=== PATIENT | female | born 1980 | race Two or more races ===

== ENCOUNTER 2022-01-11 11:30 | Emergency (ER) | payer MEDICAID ==
[~2022-01-11] VITALS: Ht 154.9 cm; Wt 95.0 kg
[2022-01-11 11:55] VITALS: BP 136/77
[2022-01-11] MEDS ORDERED: IBUPROFEN 800 MG TAB PO ONE (12:30)
[2022-01-11] MEDS ORDERED: IBUP800T27 PO (12:38)
== END 2022-01-11 13:00 | disposition home or self-care (01) ==
LOC: ER 11:30
DX: S93.401A Sprain of unspecified ligament of right ankle, initial encounter (principal); E11.9 Type 2 diabetes mellitus without complications; X50.1XXA Overexertion from prolonged static or awkward postures, initial encounter; Y93.89 Activity, other specified; Y92.89 Other specified places as the place of occurrence of the external cause; Y99.8 Other external cause status
CPT/HCPCS: 73610

== ENCOUNTER 2024-09-07 09:21 | Day surgery (SDC) | payer OTHER ==
[~2024-09-07] VITALS: Ht 154.9 cm; Wt 99.8 kg
[~2024-09-07 09:21] MED LIST: ALBUAER3 IN; BUSP15TA60 PO; CETI-120 PO; FAMO20TA10 GT; IBUP-1456 PO; MORI500C PO; NITR-87 PO; SEMA4INJ SC; SUMA100T15 PO
[2024-09-07] MEDS ORDERED: DexAMETHasone SOD PHOS 10MG/1ML VIAL INJ ONE (11:00)
[2024-09-07] MEDS ORDERED: LIDOCAINE 2% (LOCAL ANESTH.) PF 5ml SDV ONE (11:00)
[2024-09-07] MEDS ORDERED: ONDANSETRON HCL 4 MG/2 ML VIAL ONE (11:00)
[2024-09-07] MEDS ORDERED: fentaNYL CITRATE 100 MCG/2 ML VL ONE (11:01)
[2024-09-07] MEDS ORDERED: KETAMINE 50mg/ML 1ml syringe ONE (11:01)
[2024-09-07] MEDS ORDERED: GLYCOPYRROLATE 0.2 MG/ML 1ML VIAL ONE (11:01)
[2024-09-07] MEDS ORDERED: PROPOFOL 10 MG/ML 20 ML IV ONE (11:01)
[2024-09-07] MEDS ORDERED: LIDOCAINE HCL 2% TOP JELLY 5ML TOP ONE (11:04)
[2024-09-07] MEDS: LIDOCAINE W/ EPINEPHRINE 2% INJ 20ML VIAL ONE (11:11)
[2024-09-07] MEDS: ROPIVACAINE 0.5% (5MG/ML) 20ML AMPULE IJ ONE (11:11)
[2024-09-07] MEDS: DexAMETHasone SOD PHOS 4 MG/1ML SDV INJ ONE (11:11)
[2024-09-07] MEDS ORDERED: KETOROLAC TROMETH 30 MG/ML 1ML VIAL ONE (11:15)
[2024-09-07] MEDS: ceFAZolin 2 GM/D5W50ml 50 ML IV ONE (12:17)
[2024-09-07] MEDS: GABAPENTIN 300 MG CAP ONE (12:34)
[2024-09-07] MEDS: CELECOXIB 100 MG CAP ONE (12:34)
[2024-09-07] MEDS: ACETAMINOPHEN IV 100 ML IV ONE (12:34)
[2024-09-07] MEDS: ACETAMINOPHEN IV 1000 MG/100ML (10MG/ML) IV ONE (12:35)
[2024-09-07] MEDS: CELECOXIB 100 MG CAP PO ONE (12:36)
[2024-09-07] MEDS: GABAPENTIN 300 MG CAP PO ONE (12:36)
[2024-09-07 13:46] VITALS: PULSE 93; RESP 21; TEMP 97.3; O2SAT 98
[2024-09-07] MEDS ORDERED: ePHEDrine SULFATE 50 MG/ML AMP IV PRN (14:00)
[2024-09-07] MEDS ORDERED: fentaNYL CITRATE 100 MCG/2 ML VL IV PRN (14:00)
[2024-09-07] MEDS ORDERED: FLUMAZENIL 0.1 MG/ML INJ 10ML MDV IV PRN (14:00)
[2024-09-07] MEDS ORDERED: hydrALAZINE HCL 20 MG/ML VL IV PRN (14:00)
[2024-09-07] MEDS ORDERED: ONDANSETRON HCL 4 MG/2 ML VIAL IV PRN (14:00)
[2024-09-07] MEDS ORDERED: NALOXONE HCL 0.4 MG/ML VIAL IV PRN (14:00)
--- NOTE | 2024-09-07 14:00 | DVHOP2 ---
Operative Report - 2 Report Details Date: 09/07/24 Preop Diagnosis: Right knee lateral meniscus tear Postop Diagnosis: Right knee lateral meniscus tear Surgeon: Lupe Ron MD Cloth Weaver: Marcella JENNINGS Anesthesiologist: Shad Reynaga CRNA Anesthesia: General, Local Consent: The patient was informed of the risks and benefits of the procedure. These include but are not limited to complications of anesthesia, postoperative infection, incomplete relief of symptoms, recurrence of symptoms, damage to blood vessels, nerves and tendons, deep venous thrombosis, pulmonary embolism and possible need for repeat surgery in the future. 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 It had been interpreted as a bucket-handle on MRI however it was I discoid that had complex tears. There was scattered grade 2-3 lesions of the cartilage of the lateral compartment. Indications for Surgery: Right knee lateral meniscus tear with severe pain not responding to nonoperative management. Name of Procedure Performed Right knee arthroscopy, partial lateral meniscectomy Procedure Details Procedure Details: Patient was brought to the operating room placed on table supine position. General anesthetic was given. Local anesthetic infiltrated by anesthesia. 2 g IV Ancef were given. Examination under anesthesia performed. Operative lower extremity was prepped and draped in sterile fashion. Surgical timeout was performed verifying patient, laterality, and procedure. Extremity was elevated, exsanguinated with Esmarch and tourniquet inflated to 250 mmHg. I then made inferior lateral portal in usual fashion and entered the joint with blunt cannula and trocar. I began my inspection of the supra suprapatellar recess patellofemoral compartment medial gutter and the medial compartment. I placed inferior medial portal utilizing a spinal needle for guidance. I inspected and probed the structures in the medial compartment which were intact. I then shaved some fat pad to improve visualization in the notch then inspected and probed ligaments which were intact. 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 I debrided this to a stable margin using biters and Carlos. At the end there was not much if any functional lateral meniscus remaining. I inspected the lateral gutter and brought my attention back to the patellofemoral compartment. I irrigated and suctioned several times to remove particular debris. I then suctioned the joint as dry as possible. Portal sites were closed with Steri-Strips. The wounds were dressed sterilely. Tourniquet released. Patient tolerated the procedure well and was brought to the recovery room in stable condition. Condition Stable Disposition Home LUPE RON MD Sep 07, 2024 14:00
[2024-09-07] MEDS: oxyCODONE HCL 5MG TAB PO PRN (14:16)
[2024-09-07] MEDS: HYDROmorphone HCL 2 MG/ML VL/or syr IV PRN (14:19)
[2024-09-07 15:21] VITALS: BP 137/95; PULSE 81; RESP 13; O2SAT 96
== END 2024-09-07 15:40 | disposition home or self-care (01) ==
LOC: SUR 09:21
PROVIDERS: ATTEND Orthopaedic Surgery
DX: S83.271A Complex tear of lateral meniscus, current injury, right knee, initial encounter (principal); M79.4 Hypertrophy of (infrapatellar) fat pad; E11.9 Type 2 diabetes mellitus without complications; J45.909 Unspecified asthma, uncomplicated; Z79.899 Other long term (current) drug therapy; Z90.49 Acquired absence of other specified parts of digestive tract; Z98.890 Other specified postprocedural states; Z88.0 Allergy status to penicillin; X58.XXXA Exposure to other specified factors, initial encounter; Y93.89 Activity, other specified; Y92.89 Other specified places as the place of occurrence of the external cause; Y99.8 Other external cause status
CPT/HCPCS: 29881; 82962; J0690; J1100; J1171; J1885; J2003; J2405; J2704; J2795; J0131